=== PATIENT | female | born 1995 | race Caucasian/White ===

== ENCOUNTER 2016-09-08 08:43 | Emergency (ER) | payer OTHER ==
[~2016-09-08] VITALS: Ht 165.1 cm; Wt 70.3 kg
[~2016-09-08 08:43] MED LIST: CELE10TA PO; COLA100C3 PO; DIBU1OI TOP; IBUP80TA PO; LEVO175T2 PO; LEVO50IN PO; PRENTAB43 PO; PROG1CRE PV; PROM-190 PO; SERT50TA PO; TYLE650T30 PO; ZOLO100T PO; ZOLO25TA PO; ZOLO50TA PO
[2016-09-08 08:46] VITALS: BP 106/62
== END 2016-09-08 10:11 | disposition left against medical advice (07) ==
LOC: M ED 09:58
DX: Z53.21 Procedure and treatment not carried out due to patient leaving prior to being seen by health care provider (principal)

== ENCOUNTER 2016-10-23 18:32 | Emergency (ER) | payer OTHER ==
[~2016-10-23] VITALS: Ht 165.1 cm; Wt 70.8 kg
[2016-10-23 18:32] VITALS: BP 107/62
[~2016-10-23 18:32] MED LIST changes: -COLA100C3 PO; +COLA100C5 PO; +DIBU10OI TOP; -DIBU1OI TOP
== END 2016-10-23 19:50 | disposition left against medical advice (07) ==
LOC: M ED 18:32
DX: R51 Headache (principal); Z53.29 Procedure and treatment not carried out because of patient's decision for other reasons